=== PATIENT | male | born 1955 | race Caucasian/White ===

== ENCOUNTER 2018-10-07 13:32 | Inpatient (IN) | payer OTHER ==
--- OUTSIDE RECORDS SUMMARY | 2018-10-07 13:52 | XMS REPORT ---
:1955 [facility] Address [address] [place] [address] Care Team Providers Name Role Phone Unavailable Unavailable Unavailable Problems This patient has no known problems. Allergies, Adverse Reactions, Alerts This patient has no known allergies or adverse reactions. Medications This patient has no known medications.
[2018-10-07 14:48] LABS: Absolute Lymphocytes (CBC) 1.8 K/uL (0.7-4.9); Absolute Monocytes 0.7 K/uL (0.1-1.3); Absolute Neutrophil 4.8 K/uL (1.8-8.0); Basophils % 0.1 % (0-1.3); Eosinophils % 3.2 % (0-4.4); Hematocrit 42.3 % (39.6-49.0); Lymphocytes % 23.7 % (15.3-44.8); Monocytes % 8.9 % (3.3-12.3); RBC Red Blood Cell Count 5.32 M/uL (4.33-5.43)
[2018-10-07 15:02] LABS: Potassium 4.3 mmol/L (3.5-5.1)
--- NOTE | 2018-10-07 15:07 | RAD REPORT ---
EXAM DESCRIPTION: RAD - Foot Right 3 View - 10/07/2018 2:46 pm CLINICAL HISTORY: Right foot pain FINDINGS: Deformity and bony resorption involves portions of the fifth metatarsal phalanx. Presumabl y this is a chronic finding perhaps related to prior surgery or infection. The base of the fifth proximal phalanx is demineralized which also could be secondary to prior surger y or infection or acute osteomyelitis and should be correlated clinically. Cortical regularity involves mid aspect of the fourth proximal phalanx. This is equivocal for early o steomyelitis. Bones are osteoporotic. No fracture or dislocation
--- NOTE | 2018-10-07 15:33 | EDPHYS ---
Physician Documentation [facility] Name: Woo Chamberlain Age: 63 yrs Sex: Male : 1955 Arrival Date: 10/07/2018 Time: 13:33 Bed 5 Private MD: Sarmad Palmer ED Physician Robert Sheffield HPI: 10/07 14:15 This 63 yrs old Male presents to ER via Ambulatory with complaints of Foot kb Pain, Wound Infection. 14:33 The patient presents with pain, swelling, discoloration of forth and fifth toes, with kb skin sloughing. . The complaints affect the right foot. Context: The problem was sustained at home, resulted from an unknown cause, the patient can fully bear weight, the patient is able to ambulate. Onset: The symptoms/episode began/occurred 4 day(s) ago. Modifying factors: The symptoms are alleviated by nothing, the symptoms are aggravated by nothing. Associated signs and symptoms: Pertinent positives: swelling, Pertinent negatives: calf tenderness, fever, nausea, numbness, rash, tingling, vomiting, warmth, weakness. Severity of symptoms: At their worst the symptoms were moderate, in the emergency department the symptoms are unchanged. The patient has not experienced similar symptoms in the past. The patient has been recently seen by a physician: at a clinic, with similar presenting complaints, and was sent to the [facility] Emergency Department for further evaluation. Pt states he goes to the clinic for wound care for the wound on ball of right foot. States he went today and Dr Ballard told him to come here for admission for gangrenous forth and fifth digits. States the skin started sloughing off on Thursday and they had turned black by Thursday. . Historical: - Allergies: 13:37 Keflex; sg 13:37 Sulfa (Sulfonamide Antibiotics); sg - Home Meds: 20:33 Lantus 100 unit/mL Sub-Q soln 30 units in mornig, 30 units evening [Active]; lp1 - PMHx: 13:37 Diabetes - IDDM; sg - PSHx: 13:37 arm; R foot; L foot; sg - Immunization history:: Adult Immunizations up to date. - Social history:: Smoking status: Patient/guardian denies using tobacco. - Ebola Screening: : Patient negative for fever greater than or equal to 101.5 degrees Fahrenheit, and additional compatible Ebola Virus Disease symptoms Patient denies exposure to infectious person Patient denies travel to an Ebola-affected area in the 21 days before illness onset No symptoms or risks identified at this time. ROS: 14:18 Constitutional: Negative for fever, chills, and weight loss, Neck: Negative for injury, kb pain, and swelling, Cardiovascular: Negative for chest pain, palpitations, and edema, Respiratory: Negative for shortness of breath, cough, wheezing, and pleuritic chest pain, Abdomen/GI: Negative for abdominal pain, nausea, vomiting, diarrhea, and constipation, Back: Negative for injury and pain, : Negative for injury, bleeding, discharge, and swelling, Neuro: Negative for headache, weakness, numbness, tingling, and seizure. 14:18 MS/extremity: Positive for decreased range of motion, pain, discoloration of forth and fifth digits on right foot. Exam: 14:25 Constitutional: This is a well developed, well nourished patient who is awake, alert, kb and in no acute distress. Head/Face: Normocephalic, atraumatic. Neck: Trachea midline, no thyromegaly or masses palpated, and no cervical lymphadenopathy. Supple, full range of motion without nuchal rigidity, or vertebral point tenderness. No Meningismus. Chest/axilla: Normal chest wall appearance and motion. Nontender with no deformity. No lesions are appreciated. Cardiovascular: Regular rate and rhythm with a normal S1 and S2. No gallops, murmurs, or rubs. Normal PMI, no JVD. No pulse deficits. Respiratory: Lungs have equal breath sounds bilaterally, clear to auscultation and percussion. No rales, rhonchi or wheezes noted. No increased work of breathing, no retractions or nasal flaring. Abdomen/GI: Soft, non-tender, with normal bowel sounds. No distension or tympany. No guarding or rebound. No evidence of tenderness throughout. Back: No spinal tenderness. No costovertebral tenderness. Full range of motion. Neuro: Awake and alert, GCS 15, oriented to person, place, time, and situation. Cranial nerves II-XII grossly intact. Motor strength 5/5 in all extremities. Sensory grossly intact. Cerebellar exam normal. Normal gait. 14:26 Musculoskeletal/extremity: Extremities: grossly normal except: noted in the left leg: alonso zhua. 14:26 Skin: open wound to ball of right foot. discoloration to right forth and fifth digits on right foot, skin sloughing on right forth and fifth digits. . Vital Signs: 13:35 BP 142 / 70; Pulse 70; Resp 17; Temp 98.8; Pulse Ox 96% on R/A; Weight 82.55 kg; Height sg 5 ft. 11 in. (180.34 cm); Pain 7/10; 15:45 BP 125 / 78; Pulse 80; Resp 16; Pulse Ox 100% on R/A; hb 17:00 BP 125 / 75; Pulse 75; Resp 16; Pulse Ox 99% on R/A; hb 18:30 BP 123 / 82; Pulse 79; Resp 15; Temp 97.8(TE); Pulse Ox 100% ; Pain 0/10; hb 19:00 BP 132 / 68; Pulse 75; Resp 18; Pulse Ox 100% on R/A; lp1 20:00 BP 114 / 71; Pulse 78; Resp 18; Pulse Ox 98% on R/A; lp1 20:32 BP 124 / 79; Pulse 78; Resp 18; Pulse Ox 98% on R/A; lp1 13:35 Body Mass Index 25.38 (82.55 kg, 180.34 cm) sg MDM: 14:09 Patient medically screened. kb 14:18 Data reviewed: vital signs, nurses notes. Data interpreted: Pulse oximetry: on room air kb is 96 %. Interpretation: normal. 15:31 Counseling: I had a detailed discussion with the patient and/or guardian regarding: the kb historical points, exam findings, and any diagnostic results supporting the discharge/admit diagnosis, lab results, radiology results, the need for further work-up and treatment in the hospital. 10/07 14:14 Order name: CBC with Diff; Complete Time: 14:51 kb 10/07 14:14 Order name: Basic Metabolic Panel; Complete Time: 15:05 kb 10/07 14:14 Order name: Procalcitonin; Complete Time: 15:29 kb 10/07 14:14 Order name: Lactate; Complete Time: 15:05 kb 10/07 14:14 Order name: Blood Culture Adult (2) kb 10/07 14:15 Order name: Foot Right 3 View XRAY; Complete Time: 15:13 kb 10/07 14:14 Order name: IV Start; Complete Time: 14:54 kb 10/07 16:12 Order name: NPO; Complete Time: 16:55 EDMS Administered Medications: 15:46 Drug: LevaQUIN 500 mg Volume: 100 ml; Route: IVPB; Infused Over: 60 mins; Site: right hb antecubital; 16:50 Follow up: Response: No adverse reaction; IV Status: Completed infusion hb 16:55 Drug: vancoMYCIN 1 grams Route: IVPB; Infused Over: 2 hrs; Site: right antecubital; hb 20:00 Follow up: IV Status: Completed infusion lp1 Disposition: 10/08 18:55 Co-signature as Attending Physician, Robert Sheffield MD I agree with the assessment and kdr plan of care. Disposition: 10/07/18 15:32 Hospitalization ordered by Ayo Crum for Inpatient Admission. Preliminary diagnosis is Osteomyelitis. - Bed requested for Telemetry/MedSurg (Inpatient). - Status is Inpatient Admission. lp1 - Condition is Stable. - Problem is an ongoing problem. - Symptoms are unchanged. UTI on Admission? No Signatures: Dispatcher [employer] EDMS Rosa Jarrett, NEPTALI-C DIRECTOR TELEHEALTH-CkGaby Feng RN RN Beltran Love RN RN Robert Sheffield MD MD [facility] Nicole Jin RN RN [facility] Valarie Arce RN RN Corrections: (The following items were deleted from the chart) 10/07 14:33 14:25 Constitutional: This is a well developed, well nourished patient who is awake, kb alert, and in no acute distress. Head/Face: Normocephalic, atraumatic. Neck: Trachea midline, no thyromegaly or masses palpated, and no cervical lymphadenopathy. Supple, full range of motion without nuchal rigidity, or vertebral point tenderness. No Meningismus. Chest/axilla: Normal chest wall appearance and motion. Nontender with no deformity. No lesions are appreciated. Cardiovascular: Regular rate and rhythm with a normal S1 and S2. No gallops, murmurs, or rubs. Normal PMI, no JVD. No pulse deficits. Respiratory: Lungs have equal breath sounds bilaterally, clear to auscultation and percussion. No rales, rhonchi or wheezes noted. No increased work of breathing, no retractions or nasal flaring. Abdomen/GI: Soft, non-tender, with normal bowel sounds. No distension or tympany. No guarding or rebound. No evidence of tenderness throughout. Back: No spinal tenderness. No costovertebral tenderness. Full range of motion. Neuro: Awake and alert, GCS 15, oriented to person, place, time, and situation. Cranial nerves II-XII grossly intact. Motor strength 5/5 in all extremities. Sensory grossly intact. Cerebellar exam normal. Normal gait. kb 17:52 15:32 Hospitalization Ordered by Ayo Crum MD for Inpatient Admission. Preliminary dw diagnosis is Osteomyelitis. Bed requested for Telemetry/MedSurg (Inpatient). Status is Inpatient Admission. Condition is Stable. Problem is an ongoing problem. Symptoms are unchanged. UTI on Admission? No. kb 21:02 17:52 10/07/2018 15:32 Hospitalization Ordered by Ayo Crum MD for Inpatient lp1 Admission. Preliminary diagnosis is Osteomyelitis. Bed requested for Telemetry/MedSurg (Inpatient). Status is Inpatient Admission. Condition is Stable. Problem is an ongoing problem. Symptoms are unchanged. UTI on Admission? No. dw
--- NOTE | 2018-10-07 15:33 | ER ---
Nurse's Notes [facility] Name: Woo Chamberlain Age: 63 yrs Sex: Male : 1955 Arrival Date: 10/07/2018 Time: 13:33 Bed 5 Private MD: Sarmad Palmer Diagnosis: Osteomyelitis Presentation: 10/07 13:35 Presenting complaint: Patient states: pt was sent by office for evaluation sg of R foot, believed to have Gangrene on the fourth and fifth digits of the R foot, pt complains of pain at this time, unsure of any fever at home per the pt. Transition of care: patient was not received from another setting of care. Onset of symptoms was October 07, 2018. Risk Assessment: Do you want to hurt yourself or someone else? Patient reports no desire to harm self or others. Initial Sepsis Screen: Does the patient meet any 2 criteria? HR > 90 bpm. Does the patient have a suspected source of infection? Yes: Skin breakdown/wound. Care prior to arrival: None. 13:35 Method Of Arrival: Ambulatory sg 13:35 Acuity: JEANINE 3 sg Historical: - Allergies: 13:37 Keflex; sg 13:37 Sulfa (Sulfonamide Antibiotics); sg - Home Meds: 20:33 Lantus 100 unit/mL Sub-Q soln 30 units in mornig, 30 units evening [Active]; lp1 - PMHx: 13:37 Diabetes - IDDM; sg - PSHx: 13:37 arm; R foot; L foot; sg - Immunization history:: Adult Immunizations up to date. - Social history:: Smoking status: Patient/guardian denies using tobacco. - Ebola Screening: : Patient negative for fever greater than or equal to 101.5 degrees Fahrenheit, and additional compatible Ebola Virus Disease symptoms Patient denies exposure to infectious person Patient denies travel to an Ebola-affected area in the 21 days before illness onset No symptoms or risks identified at this time. Screenin:00 Abuse screen: Denies threats or abuse. Denies injuries from another. Nutritional hb screening: No deficits noted. Tuberculosis screening: No symptoms or risk factors identified. Fall Risk None identified. Assessment: 14:00 General: Appears in no apparent distress. Behavior is calm, cooperative. Pain: Denies hb pain. Neuro: Level of Consciousness is awake, alert, obeys commands, Oriented to person, place, time, situation. Cardiovascular: Heart tones S1 S2 present Capillary refill < 3 seconds Patient's skin is warm and dry. Respiratory: Airway is patent Respiratory effort is even, unlabored, Respiratory pattern is regular, symmetrical. GI: No signs and/or symptoms were reported involving the gastrointestinal system. : No signs and/or symptoms were reported regarding the genitourinary system. EENT: No signs and/or symptoms were reported regarding the EENT system. Derm: Skin is healthy with good turgor, Wound noted Other: right 4th and 5th toes black, redness at base of both toes, right 3rd toe red and skin is taught. Musculoskeletal: Amputation of Other: LEFT BKA, prosthesis in place. 15:00 Reassessment: Patient appears in no apparent distress at this time. No changes from hb previously documented assessment. Patient and/or family updated on plan of care and expected duration. Pain level reassessed. Patient is alert, oriented x 3, equal unlabored respirations, skin warm/dry/pink. 16:00 Reassessment: Patient appears in no apparent distress at this time. No changes from hb previously documented assessment. Patient and/or family updated on plan of care and expected duration. Pain level reassessed. Patient is alert, oriented x 3, equal unlabored respirations, skin warm/dry/pink. 17:00 Reassessment: Patient appears in no apparent distress at this time. No changes from hb previously documented assessment. Patient and/or family updated on plan of care and expected duration. Pain level reassessed. Patient is alert, oriented x 3, equal unlabored respirations, skin warm/dry/pink. 18:00 Reassessment: Patient appears in no apparent distress at this time. No changes from hb previously documented assessment. Patient and/or family updated on plan of care and expected duration. Pain level reassessed. Patient is alert, oriented x 3, equal unlabored respirations, skin warm/dry/pink. 18:55 Reassessment: Patient appears in no apparent distress at this time. No changes from hb previously documented assessment. Patient and/or family updated on plan of care and expected duration. Pain level reassessed. Patient is alert, oriented x 3, equal unlabored respirations, skin warm/dry/pink. 19:45 Reassessment: Patient appears in no apparent distress at this time. Patient is alert, lp1 oriented x 3, equal unlabored respirations, skin warm/dry/pink. Patient aware of pending admission; Family at bedside. Derm: Wound noted Other: R foot noted, 4th and 5th toes noted to be black in color; patient denies pain. Vital Signs: 13:35 BP 142 / 70; Pulse 70; Resp 17; Temp 98.8; Pulse Ox 96% on R/A; Weight 82.55 kg; Height sg 5 ft. 11 in. (180.34 cm); Pain 7/10; 15:45 BP 125 / 78; Pulse 80; Resp 16; Pulse Ox 100% on R/A; hb 17:00 BP 125 / 75; Pulse 75; Resp 16; Pulse Ox 99% on R/A; hb 18:30 BP 123 / 82; Pulse 79; Resp 15; Temp 97.8(TE); Pulse Ox 100% ; Pain 0/10; hb 19:00 BP 132 / 68; Pulse 75; Resp 18; Pulse Ox 100% on R/A; lp1 20:00 BP 114 / 71; Pulse 78; Resp 18; Pulse Ox 98% on R/A; lp1 20:32 BP 124 / 79; Pulse 78; Resp 18; Pulse Ox 98% on R/A; lp1 13:35 Body Mass Index 25.38 (82.55 kg, 180.34 cm) sg ED Course: 13:33 Patient arrived in ED. sg 13:34 Sarmad Palmer MD is Private Physician. sg 13:34 Arm band placed on. sg 13:36 Triage completed. sg 14:00 Patient has correct armband on for positive identification. Bed in low position. Call hb light in reach. Side rails up X 1. 14:09 Rosa Jarrett FNP-C is PHCP. kb 14:09 Robert Sheffield MD is Attending Physician. kb 14:15 Inserted saline lock: 20 gauge in right antecubital area, using aseptic technique. hb Blood collected. 14:44 X-ray completed. Portable x-ray completed in exam room. Patient tolerated procedure jb2 well. 14:45 Foot Right 3 View XRAY In Process Unspecified. EDMS 14:50 Valarie Arce, YAZ is Primary Nurse. hb 15:32 Ayo Crum MD is Hospitalizing Provider. kb 20:32 No provider procedures requiring assistance completed. Patient admitted, IV remains in lp1 place. Administered Medications: 15:46 Drug: LevaQUIN 500 mg Volume: 100 ml; Route: IVPB; Infused Over: 60 mins; Site: right hb antecubital; 16:50 Follow up: Response: No adverse reaction; IV Status: Completed infusion hb 16:55 Drug: vancoMYCIN 1 grams Route: IVPB; Infused Over: 2 hrs; Site: right antecubital; hb 20:00 Follow up: IV Status: Completed infusion lp1 Outcome: 15:32 Decision to Hospitalize by Provider. kb 20:33 Admitted to Med/surg accompanied by tech, via wheelchair, room 218, with chart, Report lp1 called to YAZ Everett 20:33 Condition: stable 20:33 Instructed on the need for admit. 21:02 Patient left the ED. lp1 Signatures: Dispatcher [employer] EDMS Rosa Jarrett, INJECTION MOLDING MACHINE OFFBEARER-C INJECTION MOLDING MACHINE OFFBEARER-Beltran White, RN YAZ Abdirahman Tobar 2 Nicole Jin RN RN 1 Valarie Arce, YAZ RN
[2018-10-07] MEDS ORDERED: Levofloxacin500mg IV 500 MG/100 ML BAG IV ONE (15:46)
--- NOTE | 2018-10-07 16:32 | P.HP ---
Certification for Inpatient Patient admitted to: Inpatient With expected LOS: >2 Midnights Practitioner: I am a practitioner with admitting privileges, knowledge of patient current condition, hospital course, and medical plan of care. Services: Services provided to patient in accordance with Admission requirements found in Title 42 Section 412.3 of the Code of Federal Regulations Patient History Date of Service: 10/07/18 Primary Care Provider: Dr. Flanagan Reason for admission: necrotic Left toe History of Present Illness: This is a 63 year old male with a hx of DM2, complicated by Left BKA [facility] toes that have changed color. Per patient, he noted that there was some blistering on the toes on Thursday, then Thursday he noted that they had turned black. He denies any trauma to the area, denies any pain. He is a current 1/3 PPD smoker for the past 50 years and does occassionally dip. Denies any other drug usage or alcohol usage. In the ED, patient remained HDS. At the time of my exam, he was AAOx3, HDS and in no acute distress. Allergies cephalexin monohydrate [From Keflex] Allergy (Intermediate, Verified 07/25/15 07 :44) Hives Sulfa (Sulfonamide Antibiotics) Allergy (Intermediate, Verified 07/25/15 07:44) Hives/Rash Home Medications: Ciprofloxacin HCl [Cipro 500 MG Tablet] 500 mg PO BID #14 tablet 01/01/16 Codeine/APAP [Tylenol W/Codeine #3 tab] 1 tab PO Q6HP PRN #30 tab 01/01/16 Insulin NPH Human [Novolin N (Humulin N)*] See Protocol SQ ACHS #10 ml - Past Medical/Surgical History Diabetic: Yes -: Neuropathy -: Back/joint pain -: DM -: Hepatitis C -: fx. right hip -: Right arm sx r/t fx -: Tonsilectomy @ 4yo -: Right wrist carpal tunnel -: bilateral feet sx. - Family History Mother -: Diabetes Brother -: Diabetes, Stroke - Social History Smoking Status: Current every day smoker Alcohol use: No CD- Drugs: No Caffeine use: Yes Review of Systems 10-point ROS is otherwise unremarkable Physical Examination - Physical Exam General: Alert, In no apparent distress, Oriented x3 HEENT: Atraumatic, PERRLA, Mucous membr. moist/pink, EOMI, Sclerae nonicteric Neck: Supple, 2+ carotid pulse no bruit, No LAD, Without JVD or thyroid abnormality Respiratory: Clear to auscultation bilaterally, Normal air movement Cardiovascular: Regular rate/rhythm, Normal S1 S2 Gastrointestinal: Normal bowel sounds, No tenderness Musculoskeletal: Other (Necrotic 4th and 5th toes on left foot; ) Integumentary: Arterial ulcer Neurological: Normal gait, Normal speech, Normal strength at 5/5 x4 extr, Normal tone, Normal affect Lymphatics: No axilla or inguinal lymphadenopathy - Studies Laboratory Data (last 24 hrs) 10/07/18 14:30: Sodium 134 L, Potassium 4.3, BUN 17, Creatinine 1.04, Glucose 309 H 10/07/18 14:30: WBC 7.5, Hgb 14.7, Hct 42.3, Plt Count 242 Assessment and Plan - Problems (Diagnosis) (1) Gangrenous toe Current Visit: Yes Status: Acute (2) History of left below knee amputation Current Visit: No Status: Acute (3) Diabetes mellitus type 1 Onset Date: 02/01/13 Current Visit: No Status: Chronic (4) Diabetic neuropathy Onset Date: 02/01/13 Current Visit: No Status: Chronic - Plan Admit patient to the floor with tele Strict blood sugar control IV antibiotics Dr. Palmer consulted, pending surgical evaluation NPO for possible surgical intervention IVF, NS at 100 cc/hr DVT prophylaxis: hold Diet: NPO - Advance Directives Does patient have a Living Will: No Does patient have a Durable POA for Healthcare: No Time Spent Managing Pts Care (In Minutes): 55
[2018-10-07] MEDS ORDERED: VANCOMYCIN 2 GM in NA CHLORIDE 0.9% 500 ML IVPB ONE (17:00)
[2018-10-07] MEDS ORDERED: VANCOMYCIN/NS 1 gm 1 GM/250 ML BAG IVPB ONE (21:30)
[2018-10-07 21:38] VITALS: BMI 22.8
--- NOTE | 2018-10-07 21:38 | CON ---
Date of Consultation: 10/07/2018 Reason For Consultation: Peripheral vascular disease, wound to right foot. History Of Present Illness: The patient is a 63-year-old gentleman who states that his left leg pros thesis was adjusted about a month ago. Since then, he developed an ulcer on his right foot and then he had pain, swelling, and discoloration of the fourth and fifth toes with skin sloughing and increas ing pain. He was seeing Dr. Ballard in his office, and then after Dr. Ballard saw the gangrene, he r eferred the patient to the emergency room and I was consulted. He is complaining of some swelling. No fever. No purulent discharge. He states that he had a blister on the bottom of the right foot, w hich he was not really managing with any kind of specific treatment, and I did his left BKA for Charc ot foot and osteomyelitis about 3 years ago. Review of Systems: Otherwise unremarkable. No chest pain. No sore throat, runny nose, cough, headaches, or dizziness. Past Medical History: Significant for severe peripheral vascular disease, diabetes. Past Surgical History: Left BKA, arm surgery, right foot surgery in the past. Allergies: INCLUDE KEFLEX AND SULFA. Social History: The patient does not smoke or drink. Physical Examination: Vital signs: Stable. He is afebrile. General: He is awake, alert, oriented x3. Head and Neck: Cranial nerves 2 through 12 are grossly within normal limits. No neck masses. No JV D. Throat clear. Neck supple. Chest: Clear. Heart: S1, S2. Abdomen: Soft. Extremities: Markedly diminished dorsalis pedis and posterior tibial pulses on the right foot. Righ t fourth and fifth toes all the way down to the metatarsal heads have gangrene with some slough under neath with surrounding erythema. There is an ulcer approximately 3 x 1 cm on the plantar aspect on t he midfoot. No purulent discharge from there. Diagnostic/laboratory Data: His white count is 7.5. Chemistry reviewed. Procalcitonin is normal. Lactic acid is normal. Glucose, however, is 309. The patient had a foot x-ray which shows no fracture or dislocation. Bones are osteoporotic. The pedro sam had DVT study done a couple of weeks ago, which was negative for DVT, and he also had a Doppler done, which did not show any occlusion or focal flow-restricting lesion. The CRISTINA was 0.7. Assessment: Right fourth and fifth toe gangrene with peripheral vascular disease. Recommendations: We will proceed with right fourth and fifth toe transmetatarsal amputation. The pa tient will be started on IV antibiotics. We will also debride the foot ulcers. The patient understa nds the risks, benefits, and alternatives and agrees to procedure. ZARIA/MODAbe Voice ID: [id number] Report ID: [id number]
[2018-10-07] MEDS: NA CHLORIDE 0.9% 1,000 ML IV SCH (21:54)
[2018-10-07] MEDS ORDERED: VANCOMYCIN 1 GM/VIAL ONE (22:11)
[2018-10-07] MEDS ORDERED: NA CHLORIDE 0.9% 250 ML ONE (22:14)
[2018-10-07] MEDS ORDERED: GLUCAGON 1 MG/VIAL IM PRN (23:13)
[2018-10-07] MEDS ORDERED: D50W 25 GM/50 ML SYRINGE IV PRN (23:13)
[2018-10-08] MEDS: NA CHLORIDE 0.9% 1,000 ML IV SCH ×2 (05:10→17:14)
[2018-10-08 05:35] LABS: Absolute Lymphocytes (CBC) 0.9 K/uL (0.7-4.9); Absolute Monocytes 0.6 K/uL (0.1-1.3); Absolute Neutrophil 5.3 K/uL (1.8-8.0); Basophils % 1.1 % (0-1.3); Eosinophils % 2.9 % (0-4.4); Hematocrit 41.8 % (39.6-49.0); Lymphocytes % 12.2 % (15.3-44.8); MPV 8.2 fL (7.6-11.3); RBC Red Blood Cell Count 5.29 M/uL (4.33-5.43)
[2018-10-08 05:42] LABS: Urine Appearance CLEAR; Urine Bilirubin NEGATIVE (NEG); Urine Blood NEGATIVE (NEG); Urine Color YELLOW; Urine Glucose 3+ (NEG); Urine Protein NEGATIVE (NEG); Urine Specific Gravity 1.025 (1.005-1.030); Urine pH 6.5 (5.0-7.0)
[2018-10-08 05:46] LABS: Urine Microscopic Reflex NO UMIC
[2018-10-08 05:51] LABS: Albumin 3.4 g/dL (3.4-5.0); Bilirubin Total 0.5 mg/dL (0.2-1.0); Magnesium 1.8 mg/dL (1.8-2.4); Phosphorus 3.3 mg/dL (2.5-4.9); Potassium 4.3 mmol/L (3.5-5.1); Protein, Total 7.6 g/dL (6.4-8.2)
[2018-10-08] MEDS ORDERED: MAGNESIUM SULFATE 1 gm IVPB 1 GM/100 ML BAG IV ONE (06:30)
[2018-10-08] MEDS: INSULIN -REGULAR HUMAN 50 UNIT/0.5 ML ML SQ SCH ×5 (08:51→21:11)
[2018-10-08] MEDS ORDERED: NA CHLORIDE 0.9% 1,000 ML ONE (09:15)
[2018-10-08] MEDS ORDERED: BUPIVACAINE 0.5% PF 10 ML VIAL ONE (09:21)
[2018-10-08] MEDS ORDERED: COLLAGENASE 30 GM OINTMENT TOP ONE (09:21)
[2018-10-08] MEDS ORDERED: FENTANYL CITR 100 MCG/2 ML ONE (09:58)
[2018-10-08] MEDS ORDERED: PROPOFOL 200 MG/20 ML VIAL IV ONE (09:58)
[2018-10-08] MEDS ORDERED: MIDAZOLAM HCL 2 MG/2 ML INJ ONE (09:58)
[2018-10-08] MEDS ORDERED: LIDOCAINE 2% MPF 5 ML VIAL ONE (09:59)
[2018-10-08] MEDS ORDERED: ONDANSETRON 4 MG/2 ML VIAL ONE (10:10)
--- NOTE | 2018-10-08 10:44 | P.OP ---
Preoperative diagnosis: Gangrene Right Foot 4th and 5th toe, Ulcer right foot Postoperative diagnosis: same Primary procedure: R 4th and 5th Toe T-M Amputation Secondary procedure: Debrdement Right Foot Ulcer 3x1 cm to sq Anesthesia: gen Estimated blood loss: min Specimen: toes Findings: as above Complications: None Transferred to: Recovery Room Condition: Good
[2018-10-08] MEDS ORDERED: HYDROCODONE/APAP 7.5/325 MG TAB PO PRN (11:01)
[2018-10-08 11:07] VITALS: O2SAT 94
[2018-10-08] MEDS: VANCOMYCIN 1.5 GM in NA CHLORIDE 0.9% 500 ML IVPB SCH (12:29)
--- NOTE | 2018-10-08 12:51 | P.PN ---
Subjective Date of Service: 10/08/18 Primary Care Provider: Dr. Flanagan Chief Complaint: necrotic Left toe Subjective: No new changes Patient seen and examined at bedside. No family at bedside. Chart reviewed and case discussed with nursing staff. Review of Systems 10-point ROS is otherwise unremarkable Physical Examination - Vital Signs Temperature: 97.3 F Blood Pressure: 121/64 Pulse: 72 Respirations: 16 Pulse Ox (%): 94 - Physical Exam General: Alert, In no apparent distress HEENT: Atraumatic, PERRLA, EOMI Neck: Supple, JVD not distended Respiratory: Clear to auscultation bilaterally, Normal air movement Cardiovascular: Regular rate/rhythm, Normal S1 S2 Gastrointestinal: Normal bowel sounds, No tenderness Musculoskeletal: Other (Left BKA) Integumentary: Other (Necrotic 4th and 5th toe of right foot) Neurological: Normal speech, Normal tone, Normal affect Lymphatics: No axilla or inguinal lymphadenopathy - Studies Laboratory Data (last 24 hrs) 10/07/18 14:30: Sodium 134 L, Potassium 4.3, BUN 17, Creatinine 1.04, Glucose 309 H 10/07/18 14:30: WBC 7.5, Hgb 14.7, Hct 42.3, Plt Count 242 Assessment And Plan - Current Problems (Diagnosis) (1) Gangrenous toe Current Visit: Yes Status: Acute (2) History of left below knee amputation Current Visit: No Status: Acute (3) Diabetes mellitus type 1 Onset Date: 02/01/13 Current Visit: No Status: Chronic (4) Diabetic neuropathy Onset Date: 02/01/13 Current Visit: No Status: Chronic - Plan Strict blood sugar control IV antibiotics Dr. Palmer consulted, Recommendations appreciated. Pending surgery today IVF, NS at 100 cc/hr DVT prophylaxis: hold Diet: NPO; 1800 diabetic diet after surgery today.
--- NOTE | 2018-10-08 21:38 | OP ---
Date of Procedure: 10/08/2018 Surgeon: Sarmad Palmer MD Preoperative Diagnoses: Right fourth and fifth toe dry gangrene and right foot ulcer. Postoperative Diagnoses: Right fourth and fifth toe dry gangrene and right foot ulcer. Procedure: Right foot third and fourth toe transmetatarsal amputation and debridement of right foot ulcer, 3 x 1 cm, to subcutaneous tissue. Estimated Blood Loss: Minimal. Specimen: Fourth and fifth toe. Findings: As above. Anesthesia: General. Complications: None. Disposition: The patient tolerated the procedure in stable condition and was taken to Recovery in go od general condition. Procedure In Detail: The patient was brought to the OR and placed in supine position. General anest hesia was begun. The patient was prepped and draped in usual sterile fashion. Marcaine 0.5% was inf iltrated locally. A 15-blade and sharp dissection were utilized to make an ellipse of skin around th e fourth and fifth toe all the way down to the midfoot laterally. Subcutaneous tissue was divided. Both gangrenous toes were removed. The metatarsal head was debrided and removed on the fourth. The fifth came with the specimen. Smooth edges were obtained on the bone, and then wound was irrigated. Bleeding was controlled with cautery. Then, a curette was used to debride the 3 x 1-cm ulcer on the plantar aspect of the foot, done through subcutaneous tissue until good bleeding was obtained. Then , 2-0 nylon was used to close the wound loosely in interrupted fashion. Part of the wound was left o pen for drainage purposes. Then, sterile dressing was applied with collagenase. The patient was jono kened and taken to Recovery in good general condition. ZARIA/MODL Voice ID: [id number] Report ID: [id number]
[2018-10-08] MEDS ORDERED: IBUPROFEN 400 MG TAB PO PRN (21:43)
[2018-10-09] MEDS: NA CHLORIDE 0.9% 1,000 ML IV SCH ×2 (00:41→13:14)
[2018-10-09] MEDS: VANCOMYCIN 1.5 GM in NA CHLORIDE 0.9% 500 ML IVPB SCH (05:15)
[2018-10-09 06:07] LABS: Magnesium 1.9 mg/dL (1.8-2.4)
[2018-10-09] MEDS: INSULIN -REGULAR HUMAN 50 UNIT/0.5 ML ML SQ SCH ×2 (07:30→11:30)
[2018-10-09] MEDS ORDERED: COLLAGENASE 30 GM OINTMENT TOP SCH (09:00)
[2018-10-09 12:14] VITALS: BP 165/79; TEMP 97.3
--- NOTE | 2018-10-09 14:27 | P.DS ---
Admission Date: 10/07/18 Discharge Date: 10/09/18 Primary Care Provider: Dr. Flanagan Disposition: ROUTINE DISCHARGE Discharge Condition: GOOD Reason for Admission: necrotic Left toes Consultations: Dr. Palmer, general surgery Procedures: 10/08/2018: Right 4th and 5th toe transmetatarsal amputation. - Problems (1) Gangrenous toe Current Visit: Yes Status: Acute (2) History of left below knee amputation Current Visit: No Status: Acute (3) Diabetes mellitus type 1 Onset Date: 02/01/13 Current Visit: No Status: Chronic (4) Diabetic neuropathy Onset Date: 02/01/13 Current Visit: No Status: Chronic Brief History of Present Illness: This is a 63 year old male with a hx of DM2, complicated by Left BKA now admitted from wound care center for left toes that have changed color. Per patient, he noted that there was some blistering on the toes on Thursday, then Thursday he noted that they had turned black. He denies any trauma to the area, denies any pain. He is a current 1/3 PPD smoker for the past 50 years and does occassionally dip. Denies any other drug usage or alcohol usage. In the ED, patient remained HDS. At the time of my exam, he was AAOx3, HDS and in no acute distress. Hospital Course: Patient was admitted for Right gangrenous 4th and 5th toes. General surgery was consulted. He has a hx of left BKA secondary to DM/charcot's joint. Patient underwent a Right 4th and 5th toe transmetatarsal amputation. He did well post op. He was conitnued on IV vancomycin and switched to orap doxycycline and ciprofloxacin upon discharge. He was instructed to follow up with Dr. Palmer in 2 weeks. He remained otherwise stable throughout the stay. Vital Signs/Physical Exam: Temp Pulse Resp BP Pulse Ox 97.3 F 67 16 165/79 H 97 10/09/18 12:00 10/09/18 12:00 10/09/18 12:00 10/09/18 12:10/09/18 12:00 General: Alert, In no apparent distress, Oriented x3 HEENT: Atraumatic, PERRLA, EOMI Neck: Supple, JVD not distended Respiratory: Clear to auscultation bilaterally, Normal air movement Cardiovascular: Regular rate/rhythm, Normal S1 S2 Gastrointestinal: Normal bowel sounds, No tenderness Musculoskeletal: No tenderness, Other (Left BKA, stable) Integumentary: Other (right toe bandaged, dry, clean and intact. ) Neurological: Normal speech, Normal tone, Normal affect Lymphatics: No axilla or inguinal lymphadenopathy Laboratory Data at Discharge: WBC 7.0 K/uL (4.3-10.9) 10/08/18 04:46 Hgb 14.7 g/dL (13.6-17.9) 10/08/18 04:46 Hct 41.8 % (39.6-49.0) 10/08/18 04:46 Plt Count 243 K/uL (152-406) 10/08/18 04:46 Sodium 140 mmol/L (136-145) 10/09/18 05:08 Potassium 4.0 mmol/L (3.5-5.1) 10/09/18 05:08 BUN 15 mg/dL (7-18) 10/09/18 05:08 Creatinine 0.86 mg/dL (0.55-1.3) 10/09/18 05:08 Glucose 224 mg/dL (74-106) H 10/09/18 05:08 Phosphorus 3.3 mg/dL (2.5-4.9) 10/08/18 04:46 Magnesium 1.9 mg/dL (1.8-2.4) 10/09/18 05:08 Total Bilirubin 0.5 mg/dL (0.2-1.0) 10/08/18 04:46 AST 6 U/L (15-37) L 10/08/18 04:46 ALT 14 U/L (12-78) 10/08/18 04:46 Alkaline Phosphatase 104 U/L (45-117) 10/08/18 04:46 Home Medications: Insulin Glargine Human [Lantus*] 35 units SQ 2000 10/07/18 Metformin HCl 1 tab PO 0730 10/07/18 Metformin HCl 1 tab PO 1800 10/07/18 Ciprofloxacin HCl 500 mg PO BID #28 tablet 10/09/18 Collagenase [Santyl Ointment*] 1 appl TOP DAILY #1 tube 10/09/18 Doxycycline Hyclate 100 mg PO BID #28 tablet 03/02/19 New Medications: Ciprofloxacin HCl 500 mg PO BID #28 tablet Collagenase [Santyl Ointment*] 1 appl TOP DAILY #1 tube Doxycycline Hyclate 100 mg PO BID #28 tablet Patient Discharge Instructions: Please follow up with your primary care physician in 2-3 days. Please follow up with Dr. Palmer, General surgery in 2 weeks. collagenase to wound daily Diet: ADA Activity: Ad isac Followup: Sarmad Palmer MD [Primary Care Provider] - 1-2 Weeks ([facility] in my clinic) Time spent managing pt's care (in minutes): 55
--- NOTE | 2018-10-09 15:49 | PN ---
Date of Progress Note: 10/09/2018 Subjective: The patient is awake, alert. No complaint. Vital signs stable, afebrile. White count is normal. Wound is clean, dry, and intact. No purulence. Assessment: Status post right foot fourth and fifth toe transmetatarsal amputation and debridement o f a pressure ulcer on the right plantar aspect of the foot. Recommendations: The patient is doing clinically well. Can be discharged home on collagenase dressi ng and p.o. antibiotics. [facility] in a week or 2 in my clin ic. /MODL Voice ID: [id number] Report ID: [id number]
== END 2018-10-09 16:20 | disposition home or self-care (01) | DRG 256 ==
LOC: ER 13:32 → ERHOLD 16:19 → 2ND 20:38
PROVIDERS: ADMIT Family Medicine; ATTEND Family Medicine
PROC: 0Y6X0Z1 Detachment at Right 5th Toe, High, Open Approach (ICD-10-PCS; 2018-10-08)
PROC: 0JBQ0ZZ Excision of Right Foot Subcutaneous Tissue and Fascia, Open Approach (ICD-10-PCS; principal; 2018-10-08 09:45)
PROC: 0Y6V0Z1 Detachment at Right 4th Toe, High, Open Approach (ICD-10-PCS; 2018-10-08 09:45)
DX: E10.52 Type 1 diabetes mellitus with diabetic peripheral angiopathy with gangrene (principal); I96 Gangrene, not elsewhere classified; L97.418 Non-pressure chronic ulcer of right heel and midfoot with other specified severity; Z79.4 Long term (current) use of insulin; E10.621 Type 1 diabetes mellitus with foot ulcer; Z88.1 Allergy status to other antibiotic agents; Z88.2 Allergy status to sulfonamides; Z89.512 Acquired absence of left leg below knee; F17.210 Nicotine dependence, cigarettes, uncomplicated; B18.2 Chronic viral hepatitis C; E10.42 Type 1 diabetes mellitus with diabetic polyneuropathy
CPT/HCPCS: 36415; 80048; 80053; 81003; 82962; 83605; 83735; 84100; 84145; 85025; 87040; 88305; 88311; 94760; 96365; 96366; 96367; 99285; J2250; J2405; J2704; J3010; J3370; J3475; J3590; J7030